=== PATIENT | male | born 2000 | race Two or more races ===

== ENCOUNTER 2018-10-31 15:29 | Emergency (ER) | payer SELFPAY ==
[2018-10-31 15:45] VITALS: RESP 18; TEMP 97.9
[2018-10-31 15:50] VITALS: BP 126/77; PULSE 92; O2SAT 97
[2018-10-31] MEDS ORDERED: TDAP VACCINE 0.5 ML SUS IM ONE ×2 (15:53→16:02)
[2018-10-31] MEDS ORDERED: IBUPROFEN 600 MG TAB PO ONE (15:56)
[2018-10-31] MEDS ORDERED: IBUPROFEN 600 MG TAB ONE (16:02)
== END 2018-10-31 17:00 | disposition home or self-care (01) | DRG 605 ==
LOC: ED 15:29
DX: S60.222A Contusion of left hand, initial encounter (principal); W22.8XXA Striking against or struck by other objects, initial encounter
CPT/HCPCS: 73130; 90471; 90715; 99283; A9270-GY